=== PATIENT | male | born 1995 | race Two or more races ===

== ENCOUNTER 2025-01-25 20:31 | Emergency (ER) | payer OTHER ==
[~2025-01-25] VITALS: Ht 170.2 cm; Wt 72.6 kg
[2025-01-25] MEDS ORDERED: ADDERALL 30 MG30 MG (20:55)
[2025-01-25] MEDS ORDERED: DEXTROSE 5 % AND 0.9 % NACL 500 ML IV SCH (21:30)
[2025-01-25 21:59] LABS: BASO % 0.5 % (0.1-1.2); EOS # 0.02 (0.04-0.54); EOS % 0.2 % (0.7-7.0); LYMPH # 1.87 (1.18-3.74); LYMPH % 17.6 % (19.3-53.1); MEAN PLATELET VOLUME 10.60 fl (9.4-12.4); MONO # 0.74 (0.24-0.82); MONO % 7.0 % (4.7-12.5); NEUT # 7.89 (1.56-6.13); NEUT % 74.1 % (34.0-71.1); RED CELL DISTRIBUTION WIDTH 11.1 % (11.6-14.4)
[2025-01-25] MEDS ORDERED: MORPHINE SULFATE 4 MG/ML VIAL IV ONE (22:15)
[2025-01-25 22:32] LABS: ALT/SGPT 25.0 U/L (12-78); AST/SGOT 13.0 U/L (15-37); BILIRUBIN TOTAL 1.77 mg/dL (0.3-1.2); BUN CREA RATIO 13.0 (7.0-25.0); CREATININE SERUM 1.17 mg/dL (0.70-1.30); GFR 73.2; GLOBULINA 3.2 G/DL (2.4-3.5); GLUCOSE FASTING 114.0 mg/dL (65-100); OSMOLALITY SERUM 285.0 MOSM/KG (275-295)
[2025-01-25] MEDS ORDERED: ONDANSETRON HCL 2 MG/ML VIAL IV ONE (22:45)
[2025-01-25] MEDS ORDERED: MORPHINE SULFATE 2 MG/ML SYRINGE IV ONE (22:45)
== END 2025-01-26 01:47 | disposition home or self-care (01) ==
LOC: ER 20:31
PROVIDERS: Emergency Medicine
DX: G43.909 Migraine, unspecified, not intractable, without status migrainosus (principal)